=== PATIENT | female | born 1945 | race Caucasian/White ===

== ENCOUNTER 2017-05-01 13:54 | Inpatient (IN) | payer MEDICARE, SELFPAY ==
[~2017-05-01] VITALS: Ht 160 cm; Wt 72.7 kg
[2017-05-01 14:22] LABS: HEMOGLOBIN 15.5 gm/dl (12.3-15.3); RED BLOOD COUNT 5.3 M/UL (4.00-5.10); WHITE BLOOD COUNT 9.8 K/UL (4.5-11.0)
[2017-05-01 14:45] LABS: BUN/CREATININE RATIO 22 (0-10)
[2017-05-02] MEDS ORDERED: GLUCOPHAGE 500500 MG PO (04:45)
[2017-05-02] MEDS ORDERED: ZANTAC 150 MG150 MG PO (04:46)
[2017-05-02] MEDS ORDERED: ASPIRIN81 MG PO (04:47)
[2017-05-02] MEDS ORDERED: LISINOPRIL20 MG PO (04:47)
[2017-05-02] MEDS ORDERED: VERAPAMIL ER180 MG PO (04:47)
[2017-05-02] MEDS ORDERED: HYDROCHLOROTH12.5 MG PO (04:48)
[2017-05-02] MEDS ORDERED: CATAPRES 0.1MG0.1 MG PO (04:48)
[2017-05-02] MEDS ORDERED: PRAVACHOL20 MG PO (04:49)
[2017-05-02 06:07] LABS: HEMOGLOBIN 15.3 gm/dl (12.3-15.3); RED BLOOD COUNT 5.19 M/UL (4.00-5.10); WHITE BLOOD COUNT 11.3 K/UL (4.5-11.0)
[2017-05-02 06:26] LABS: BUN/CREATININE RATIO 20 (0-10)
[2017-05-03 06:32] LABS: BUN/CREATININE RATIO 33 (0-10)
[2017-05-04 06:25] LABS: BUN/CREATININE RATIO 35 (0-10)
== END 2017-05-04 17:06 | DRG 65 ==
LOC: ER1 13:54 → ZEROF 16:30 → M/S 16:54
PROVIDERS: Emergency Medicine; Family Medicine; ADMIT Internal Medicine Infectious Disease
PROC: B246ZZ4 Ultrasonography of Right and Left Heart, Transesophageal (ICD-10-PCS; principal; 2017-05-04)
DX: I63.9 Cerebral infarction, unspecified (principal); G81.94 Hemiplegia, unspecified affecting left nondominant side; E87.2 Acidosis; R29.810 Facial weakness; E78.5 Hyperlipidemia, unspecified; Z86.73 Personal history of transient ischemic attack (TIA), and cerebral infarction without residual deficits; R42 Dizziness and giddiness; S00.12XA Contusion of left eyelid and periocular area, initial encounter; W18.39XA Other fall on same level, initial encounter; Y93.89 Activity, other specified; Y92.002 Bathroom of unspecified non-institutional (private) residence as the place of occurrence of the external cause; E11.65 Type 2 diabetes mellitus with hyperglycemia; E04.2 Nontoxic multinodular goiter
CPT/HCPCS: ECHO; 12001; 36415; 70450; 70486; 70551; 71010; 72125; 76536; 80048; 80053; 80061; 82550; 82553; 82962; 83036; 83735; 83874; 84132; 84436; 84443; 84484; 85025; 85610; 85730; 92526; 92610; 93005; 93306; 93312; 93320; 93880; 96374; 97110; 97116; 97530; 99285; J1815; J2250; J2310; J2550; J3010